=== PATIENT | female | born 1980 | race Hispanic/Latino ===

== ENCOUNTER → 2022-07-20 | Day surgery (SDC) | payer OTHER ==
[~2022-07-20] MED LIST: CENTRUM SILVER1 EAC5 PO; HYDROCODON-ACE1 EA11 PO; LIDOCAINE HCL 2% LOCAL INJ 5 ML SDV VIAL INJ ONE; NAPROXEN250 MG PO; NEURONTIN400 MG PO; PLAQUENIL200 MG PO; PREDNISONE5 MG PO; PROPOFOL IV EMULSION 10 MG/ML 20 ML VIAL ONE
[2022-07-20 14:05] VITALS: BP 127/88
== END | disposition home or self-care (01) ==
LOC: OR 10:11
PROVIDERS: ATTEND Internal Medicine Gastroenterology
DX: Z43.3 Encounter for attention to colostomy (principal); K59.00 Constipation, unspecified; K57.30 Diverticulosis of large intestine without perforation or abscess without bleeding; K64.8 Other hemorrhoids; Z71.3 Dietary counseling and surveillance; Z90.49 Acquired absence of other specified parts of digestive tract; Z87.19 Personal history of other diseases of the digestive system; M06.9 Rheumatoid arthritis, unspecified; E66.9 Obesity, unspecified; F41.9 Anxiety disorder, unspecified; Z68.29 Body mass index [BMI] 29.0-29.9, adult; Z86.16 Personal history of COVID-19; Z79.52 Long term (current) use of systemic steroids; Z79.899 Other long term (current) drug therapy
CPT/HCPCS: 36415; 44388; 84702; J2001; J2704; 45378

== ENCOUNTER 2022-11-21 14:12 | Inpatient (IN) | payer OTHER ==
[2022-11-21] VITALS (7 sets, daily range): BP systolic 106–127; BP diastolic 62–83
[~2022-11-21] VITALS: Ht 160 cm; Wt 65.8 kg
[~2022-11-21 14:12] MED LIST changes: -LIDOCAINE HCL 2% LOCAL INJ 5 ML SDV VIAL INJ ONE; -PROPOFOL IV EMULSION 10 MG/ML 20 ML VIAL ONE
[2022-11-21] MEDS ORDERED: SODIUM CHLORIDE 0.9% 1000ML 1,000 ML IV STA ×2 (16:19→18:23)
[2022-11-21 16:51] LABS: BASOPHILS % 0.4 % (0.0-1.0); EOSINOPHILS # (AUTO) 0.1 (0.0-0.4); HEMATOCRIT 53.3 % (34.2-44.1); HEMOGLOBIN 15.1 g/dL (12.0-16.0); LYMPHOCYTES % 10.5 % (18.0-39.1); MEAN CORPUSCULAR HEMOGLOBIN 22.5 pg (28-32); MEAN CORPUSCULAR HGB CONC 28.3 g/dL (31-35); MEAN CORPUSCULAR VOLUME 79.6 fL (81-99); MONOCYTES # (AUTO) 0.9 (0.2-0.8); MONOCYTES % 9.4 % (4.4-11.3); NEUTROPHILS # (AUTO) 7.1 (2.1-6.9); NEUTROPHILS % 77.8 % (38.7-80.0); PLATELET COUNT 324 x10e3/uL (140-360); RED CELL DISTRIBUTION WIDTH 19.9 % (11.7-14.4)
[2022-11-21 17:03] LABS: INR 1.08; PARTIAL THROMBOPLASTIN TIME 22.6 seconds (23.8-35.5); PROTHROMBIN TIME 14.2 seconds (11.9-14.5)
[2022-11-21] MEDS ORDERED: Vancomycin IV 1 GM in SODIUM CHLORIDE 0.9% 250ML 250 ML IV ONE (17:15)
[2022-11-21] MEDS ORDERED: CEFTRIAXONE 2 GM in SODIUM CHLORIDE 0.9% 100 ML IV ONE (17:15)
[2022-11-21] MEDS ORDERED: DEXAMETHASONE SOD PHOS 10 MG/1 ML VIAL IV ONE (17:15)
[2022-11-21 17:17] LABS: ALANINE AMINOTRANSFERASE 52 IU/L (0-55); ALBUMIN 3.4 g/dL (3.5-5.0); ALBUMIN/GLOBULIN RATIO 0.5 (0.8-2.0); ALKALINE PHOSPHATASE 344 IU/L (40-150); ANION GAP 25.3 mmol/L (8-16); BLOOD UREA NITROGEN 12 mg/dL (7-26); BUN/CREATININE RATIO 12 (6-25); CALCIUM 10.7 mg/dL (8.4-10.2); CARBON DIOXIDE 12 mmol/L (22-29); CHLORIDE 102 mmol/L (98-107); CREATINE KINASE 201 IU/L (29-168); CREATININE, SERUM 0.98 mg/dL (0.57-1.11); GLUCOSE 182 mg/dL (74-118); LIPASE 19 U/L (8-78); MAGNESIUM 1.8 MG/DL (1.3-2.1); POTASSIUM 4.3 mmol/L (3.5-5.1); SODIUM 135 mmol/L (136-145)
[2022-11-21] MEDS ORDERED: CEFTRIAXONE 1 GM VIAL ONE ×2 (17:26→17:27)
[2022-11-21] MEDS ORDERED: ONDANSETRON HCL INJ 2MG/ML 2ML 2 MG/ML VIAL ONE (17:26)
[2022-11-21] MEDS ORDERED: Vancomycin IV 1 GM VIAL ONE (17:27)
[2022-11-21 17:31] LABS: B-TYPE NATRIURETIC PEPTIDE2 15.5 pg/mL (0-100)
[2022-11-21 17:37] LABS: THYROID STIMULATING HORMONE 1.579 uIU/mL (0.350-4.940)
[2022-11-21] MEDS ORDERED: SODIUM CHLORIDE 0.9% 100 ML ONE (17:40)
[2022-11-21] MEDS ORDERED: Ampicillin INJ 2 GM in SODIUM CHLORIDE 0.9% 100 ML IV ONE ×2 (18:00→19:30)
[2022-11-21 18:23] LABS: STREPTOCOCCUS GRP A ANTIGEN NEGATIVE (NEGATIVE)
[2022-11-21 18:38] LABS: CLARITY,URINE HAZY (CLEAR); COLOR,URINE YELLOW (YELLOW); KETONES,URINE >=160 (NEGATIVE); LEUKOCYTE ESTERASE ,URINE NEGATIVE (NEGATIVE); NITRITE,URINE NEGATIVE (NEGATIVE); PROTEIN,URINE DIPSTICK >=300 (NEGATIVE); URINE UROBILINOGEN 0.2 mg/dL (0.2 - 1)
[2022-11-21 18:44] LABS: BACTERIA,URINE FEW /HPF; EPITHELIAL CELLS,URINE MANY /LPF; MUCUS,URINE FEW (RARE); RBC,URINE 0-5 /HPF (0-5); WBC,URINE (MAN) 0-5 /HPF (0-5)
[2022-11-21 19:05] LABS: ABG PCO2 28 mmHg (35-45); ABG PH 7.33 (7.35-7.45)
[2022-11-21 19:06] LABS: ABG HCO3 15 mmol/L (22-26); ABG PO2 95 mmHg (80-105); ABG TCO2 15
[2022-11-21] MEDS ORDERED: ACETAMINOPHEN 325 MG TAB PO ONE (19:15)
[2022-11-21] MEDS ORDERED: Ampicillin INJ 1 GM Vial ONE (19:25)
[2022-11-21] MEDS ORDERED: PROMETHAZINE 12.5MG/ NACL 0.9% 12.5 MG/50 ML BAG IV PRN (19:30)
[2022-11-21] MEDS ORDERED: METOPROLOL TARTRATE INJ 1 MG/ML VIAL IV PRN ×2 (19:30→22:00)
[2022-11-21] MEDS ORDERED: ONDANSETRON HCL INJ 2MG/ML 2ML 2 MG/ML VIAL IV PRN (19:30)
[2022-11-21] MEDS: SODIUM BICARBONATE 8.4% SYRING 50 ML in SODIUM CHLORIDE 0.45% 1,000 ML IV SCH (21:27)
[2022-11-21] MEDS ORDERED: ACETAMINOPHEN 325 MG SUPP PR PRN (22:00)
[2022-11-22] VITALS (26 sets, daily range): BP systolic 87–132; BP diastolic 55–84
[2022-11-22] MEDS: HYDROMORPHONE 1MG/1ML INJ IV PRN ×2 (00:51→07:46)
[2022-11-22] MEDS: SODIUM BICARBONATE 8.4% SYRING 50 ML in SODIUM CHLORIDE 0.45% 1,000 ML IV SCH ×3 (03:54→19:26)
[2022-11-22 06:27] LABS: BASOPHILS % 0.2 % (0.0-1.0); EOSINOPHILS % 0.2 % (0.0-6.0); HEMATOCRIT 36.9 % (34.2-44.1); LYMPHOCYTES # (AUTO) 0.5 (1.0-3.2); LYMPHOCYTES % 7.6 % (18.0-39.1); MEAN CORPUSCULAR HEMOGLOBIN 22.7 pg (28-32); MEAN CORPUSCULAR VOLUME 78.3 fL (81-99); MONOCYTES # (AUTO) 0.2 (0.2-0.8); MONOCYTES % 2.9 % (4.4-11.3); NEUTROPHILS # (AUTO) 5.7 (2.1-6.9); NEUTROPHILS % 88.6 % (38.7-80.0); PLATELET COUNT 325 x10e3/uL (140-360); RED BLOOD COUNT 4.71 x10e6/uL (3.6-5.1); RED CELL DISTRIBUTION WIDTH 18.2 % (11.7-14.4)
[2022-11-22 06:30] LABS: ALBUMIN 2.5 g/dL (3.5-5.0); ALBUMIN/GLOBULIN RATIO 0.6 (0.8-2.0); ANION GAP 15.8 mmol/L (8-16); CALCIUM 8.8 mg/dL (8.4-10.2); CREATININE, SERUM 0.58 mg/dL (0.57-1.11); POTASSIUM 3.8 mmol/L (3.5-5.1)
[2022-11-22 06:31] LABS: HEMOGLOBIN 10.7 g/dL (12.0-16.0)
[2022-11-22 06:36] LABS: MAGNESIUM 1.7 MG/DL (1.3-2.1); PHOSPHORUS 2.6 MG/DL (2.3-4.7)
[2022-11-22 06:57] LABS: THYROID STIMULATING HORMONE 0.27 uIU/mL (0.350-4.940)
[2022-11-22] MEDS ORDERED: MAGNESIUM SULF 1GRAM/DEXTROSE 100 ML IV ONE (07:30)
[2022-11-22 08:53] LABS: ANISOCYTOSIS MODERATE; PLATELET ESTIMATE ADEQUATE; PLATELET MORPHOLOGY COMMENT NORMAL; RBC MORPHOLOGY COMMENT ABNORMAL
[2022-11-22] MEDS ORDERED: DOXYCYCLINE HY100 MG PO (11:31)
[2022-11-23] VITALS (15 sets, daily range): BP systolic 108–133; BP diastolic 70–92
[2022-11-23 01:56] LABS: % IRON SATURATION 5 % (15-50); IRON 16 ug/dL (50-170); TOTAL IRON BINDING CAPACITY 297 ug/dL (261-478); TRANSFERRIN 212 mg/dL (180-382)
[2022-11-23] MEDS: SODIUM BICARBONATE 8.4% SYRING 50 ML in SODIUM CHLORIDE 0.45% 1,000 ML IV SCH (03:42)
[2022-11-23 06:43] LABS: BASOPHILS % 0.1 % (0.0-1.0); HEMATOCRIT 30.6 % (34.2-44.1); LYMPHOCYTES # (AUTO) 0.9 (1.0-3.2); LYMPHOCYTES % 10.3 % (18.0-39.1); MEAN CORPUSCULAR HEMOGLOBIN 22.4 pg (28-32); MEAN CORPUSCULAR HGB CONC 29.4 g/dL (31-35); MEAN CORPUSCULAR VOLUME 76.3 fL (81-99); MONOCYTES # (AUTO) 0.8 (0.2-0.8); NEUTROPHILS # (AUTO) 6.7 (2.1-6.9); NEUTROPHILS % 79.7 % (38.7-80.0); PLATELET COUNT 309 x10e3/uL (140-360); RED BLOOD COUNT 4.01 x10e6/uL (3.6-5.1); RED CELL DISTRIBUTION WIDTH 17.9 % (11.7-14.4)
[2022-11-23 07:07] LABS: ALBUMIN 2.3 g/dL (3.5-5.0); ALBUMIN/GLOBULIN RATIO 0.7 (0.8-2.0); ANION GAP 11.6 mmol/L (8-16); CALCIUM 7.7 mg/dL (8.4-10.2); CREATININE, SERUM 0.49 mg/dL (0.57-1.11)
[2022-11-23 07:09] LABS: POTASSIUM 2.6 mmol/L (3.5-5.1)
[2022-11-23] MEDS ORDERED: MAGNESIUM SULFATE 2GM/50ML 50 ML IV ONE (09:30)
[2022-11-23] MEDS: POTASSIUM CHLORIDE 20MEQ/100ML 100 ML IV SCH ×4 (10:19→16:55)
[2022-11-23] MEDS: SODIUM CHLORIDE 0.45% 1,000 ML IV SCH (11:46)
[2022-11-23] MEDS: HYDROMORPHONE 1MG/1ML INJ IV PRN (19:21)
[2022-11-24] VITALS (12 sets, daily range): BP systolic 103–124; BP diastolic 60–87
[2022-11-24] MEDS: SODIUM CHLORIDE 0.45% 1,000 ML IV SCH (06:02)
[2022-11-24 07:16] LABS: BASOPHILS % 0.4 % (0.0-1.0); EOSINOPHILS # (AUTO) 0.1 (0.0-0.4); HEMATOCRIT 30.2 % (34.2-44.1); HEMOGLOBIN 8.6 g/dL (12.0-16.0); LYMPHOCYTES # (AUTO) 1.6 (1.0-3.2); LYMPHOCYTES % 31.1 % (18.0-39.1); MEAN CORPUSCULAR HEMOGLOBIN 22.6 pg (28-32); MEAN CORPUSCULAR HGB CONC 28.5 g/dL (31-35); MEAN CORPUSCULAR VOLUME 79.5 fL (81-99); MONOCYTES # (AUTO) 0.5 (0.2-0.8); MONOCYTES % 9.5 % (4.4-11.3); NEUTROPHILS # (AUTO) 2.9 (2.1-6.9); NEUTROPHILS % 56.4 % (38.7-80.0); PLATELET COUNT 283 x10e3/uL (140-360); RED CELL DISTRIBUTION WIDTH 18.3 % (11.7-14.4)
[2022-11-24 07:38] LABS: ALBUMIN/GLOBULIN RATIO 0.6 (0.8-2.0); ANION GAP 26.6 mmol/L (8-16); CREATININE, SERUM 0.5 mg/dL (0.57-1.11); MAGNESIUM 1.4 MG/DL (1.3-2.1)
[2022-11-24 07:41] LABS: CALCIUM 6.2 mg/dL (8.4-10.2); POTASSIUM 2.6 mmol/L (3.5-5.1)
[2022-11-24] MEDS: POTASSIUM CHLORIDE 20MEQ/100ML 100 ML IV SCH ×2 (09:40→12:50)
[2022-11-24] MEDS ORDERED: DEXTROSE 5% 1,000 ML IV ONE (09:45)
[2022-11-24] MEDS: IRON SUCROSE 100 MG in SODIUM CHLORIDE 0.9% 100 ML IV SCH (10:03)
[2022-11-24] MEDS: HYDROMORPHONE 1MG/1ML INJ IV PRN (13:48)
[2022-11-24] MEDS ORDERED: POTASSIUM CHLORIDE 20 MEQ TAB CR PO ONE (14:00)
[2022-11-24] MEDS: HYDROXYCHLOROQUINE SULFATE 200 MG TAB PO SCH (16:34)
[2022-11-24] MEDS: GABAPENTIN 400 MG CAP PO SCH (20:05)
[2022-11-25] VITALS (15 sets, daily range): BP systolic 97–122; BP diastolic 60–85
[2022-11-25] MEDS: HYDROMORPHONE 1MG/1ML INJ IV PRN ×2 (01:30→14:48)
[2022-11-25 06:38] LABS: BASOPHILS % 0.5 % (0.0-1.0); EOSINOPHILS # (AUTO) 0.2 (0.0-0.4); EOSINOPHILS % 2.6 % (0.0-6.0); HEMATOCRIT 34.4 % (34.2-44.1); HEMOGLOBIN 9.6 g/dL (12.0-16.0); LYMPHOCYTES # (AUTO) 1.5 (1.0-3.2); LYMPHOCYTES % 25.9 % (18.0-39.1); MEAN CORPUSCULAR HEMOGLOBIN 22.2 pg (28-32); MEAN CORPUSCULAR HGB CONC 27.9 g/dL (31-35); MEAN CORPUSCULAR VOLUME 79.4 fL (81-99); MONOCYTES # (AUTO) 0.6 (0.2-0.8); MONOCYTES % 10.9 % (4.4-11.3); NEUTROPHILS # (AUTO) 3.4 (2.1-6.9); PLATELET COUNT 343 x10e3/uL (140-360); RED BLOOD COUNT 4.33 x10e6/uL (3.6-5.1)
[2022-11-25 07:00] LABS: ALBUMIN 2.4 g/dL (3.5-5.0); ALBUMIN/GLOBULIN RATIO 0.7 (0.8-2.0); ANION GAP 12.5 mmol/L (8-16); CALCIUM 8.2 mg/dL (8.4-10.2); CREATININE, SERUM 0.55 mg/dL (0.57-1.11); POTASSIUM 3.5 mmol/L (3.5-5.1)
[2022-11-25] MEDS: NAPROXEN 250 MG TAB PO PRN (07:41)
[2022-11-25] MEDS: IRON SUCROSE 100 MG in SODIUM CHLORIDE 0.9% 100 ML IV SCH (08:46)
[2022-11-25] MEDS: GABAPENTIN 400 MG CAP PO SCH ×3 (08:46→23:14)
[2022-11-25] MEDS: PREDNISONE 5 MG TAB PO SCH (08:46)
[2022-11-25] MEDS: HYDROXYCHLOROQUINE SULFATE 200 MG TAB PO SCH ×2 (08:46→17:04)
[2022-11-25] MEDS ORDERED: POTASSIUM CHLORIDE 20MEQ/100ML 200 ML IV ONE (14:15)
[2022-11-25] MEDS: METRONIDAZOLE 500 MG TAB PO SCH (23:14)
[2022-11-26] VITALS (8 sets, daily range): BP systolic 94–134; BP diastolic 57–92
[2022-11-26] MEDS: METRONIDAZOLE 500 MG TAB PO SCH ×2 (05:50→14:57)
[2022-11-26 07:15] LABS: BASOPHILS % 0.4 % (0.0-1.0); EOSINOPHILS # (AUTO) 0.2 (0.0-0.4); EOSINOPHILS % 2.5 % (0.0-6.0); HEMATOCRIT 36.9 % (34.2-44.1); HEMOGLOBIN 10.3 g/dL (12.0-16.0); LYMPHOCYTES # (AUTO) 1.9 (1.0-3.2); LYMPHOCYTES % 24.9 % (18.0-39.1); MEAN CORPUSCULAR HEMOGLOBIN 22.4 pg (28-32); MEAN CORPUSCULAR HGB CONC 27.9 g/dL (31-35); MEAN CORPUSCULAR VOLUME 80.2 fL (81-99); MONOCYTES # (AUTO) 0.6 (0.2-0.8); MONOCYTES % 7.7 % (4.4-11.3); NEUTROPHILS # (AUTO) 4.7 (2.1-6.9); NEUTROPHILS % 62.2 % (38.7-80.0); PLATELET COUNT 409 x10e3/uL (140-360); RED CELL DISTRIBUTION WIDTH 18.9 % (11.7-14.4)
[2022-11-26 07:59] LABS: ALBUMIN 2.7 g/dL (3.5-5.0); ALBUMIN/GLOBULIN RATIO 0.7 (0.8-2.0); ANION GAP 11.4 mmol/L (8-16); CALCIUM 8.6 mg/dL (8.4-10.2); CREATININE, SERUM 0.55 mg/dL (0.57-1.11); POTASSIUM 3.4 mmol/L (3.5-5.1)
[2022-11-26] MEDS: GABAPENTIN 400 MG CAP PO SCH ×3 (09:12→20:44)
[2022-11-26] MEDS: PREDNISONE 5 MG TAB PO SCH (09:12)
[2022-11-26] MEDS: HYDROXYCHLOROQUINE SULFATE 200 MG TAB PO SCH ×2 (09:13→17:11)
[2022-11-26] MEDS: IRON SUCROSE 100 MG in SODIUM CHLORIDE 0.9% 100 ML IV SCH (10:50)
[2022-11-26] MEDS ORDERED: SODIUM CHLORIDE 0.9% 250ML 250 ML ONE (11:00)
[2022-11-26] MEDS ORDERED: POTASSIUM CHLORIDE 20 MEQ TAB CR PO ONE (11:45)
[2022-11-26] MEDS ORDERED: POTASSIUM CHLORIDE 20 MEQ TAB CR PO STA (12:35)
[2022-11-27] VITALS: BP_SYST 122; BP_SYST 130; BP_DIAS 82; BP_DIAS 88
[2022-11-27] MEDS: METRONIDAZOLE 500 MG TAB PO SCH ×3 (01:00→14:27)
[2022-11-27] MEDS: NAPROXEN 250 MG TAB PO PRN (01:12)
[2022-11-27 04:58] VITALS: BP 109/77
[2022-11-27 06:14] LABS: BASOPHILS % 0.4 % (0.0-1.0); EOSINOPHILS # (AUTO) 0.2 (0.0-0.4); EOSINOPHILS % 1.9 % (0.0-6.0); HEMATOCRIT 35.6 % (34.2-44.1); HEMOGLOBIN 10.7 g/dL (12.0-16.0); LYMPHOCYTES # (AUTO) 1.8 (1.0-3.2); LYMPHOCYTES % 19.8 % (18.0-39.1); MEAN CORPUSCULAR HEMOGLOBIN 22.7 pg (28-32); MEAN CORPUSCULAR HGB CONC 30.1 g/dL (31-35); MEAN CORPUSCULAR VOLUME 75.6 fL (81-99); MONOCYTES # (AUTO) 0.8 (0.2-0.8); NEUTROPHILS # (AUTO) 6.1 (2.1-6.9); NEUTROPHILS % 66.6 % (38.7-80.0); PLATELET COUNT 493 x10e3/uL (140-360); RED BLOOD COUNT 4.71 x10e6/uL (3.6-5.1); RED CELL DISTRIBUTION WIDTH 19.4 % (11.7-14.4)
[2022-11-27 06:33] LABS: ANION GAP 13.6 mmol/L (8-16); CALCIUM 8.5 mg/dL (8.4-10.2); CREATININE, SERUM 0.57 mg/dL (0.57-1.11); POTASSIUM 3.6 mmol/L (3.5-5.1)
[2022-11-27 07:44] VITALS: BP 109/77
[2022-11-27 09:00] VITALS: BP 113/79
[2022-11-27] MEDS: IRON SUCROSE 100 MG in SODIUM CHLORIDE 0.9% 100 ML IV SCH (09:01)
[2022-11-27] MEDS: GABAPENTIN 400 MG CAP PO SCH ×2 (09:02→14:26)
[2022-11-27] MEDS: HYDROXYCHLOROQUINE SULFATE 200 MG TAB PO SCH ×2 (09:02→14:27)
[2022-11-27] MEDS: PREDNISONE 5 MG TAB PO SCH (09:03)
[2022-11-27 12:34] VITALS: BP 115/85
[2022-11-27] MEDS ORDERED: METRONIDAZOLE500 MG PO (13:57)
[2022-11-27] MEDS ORDERED: KEFLEX125 MG/5 M PO (13:57)
[2022-11-27] MEDS ORDERED: LACTOBACILLUS ACIDOPHILUS CAPSULE PO SCH (17:00)
== END 2022-11-27 16:08 | disposition home or self-care (01) | DRG 871 ==
LOC: ER 15:47 → ERHOLD 19:12 → ICU 20:55 → MED/SURG2 11-26 09:51
PROVIDERS: ADMIT Internal Medicine; ATTEND Internal Medicine
PROC: 3E04329 Introduction of Other Anti-infective into Central Vein, Percutaneous Approach (ICD-10-PCS; 2022-11-21)
PROC: 3E04329 Introduction of Other Anti-infective into Central Vein, Percutaneous Approach (ICD-10-PCS; 2022-11-21)
PROC: 3E04329 Introduction of Other Anti-infective into Central Vein, Percutaneous Approach (ICD-10-PCS; 2022-11-21)
PROC: 3E04329 Introduction of Other Anti-infective into Central Vein, Percutaneous Approach (ICD-10-PCS; 2022-11-21)
PROC: 06HY33Z Insertion of Infusion Device into Lower Vein, Percutaneous Approach (ICD-10-PCS; 2022-11-21)
PROC: 02HV33Z Insertion of Infusion Device into Superior Vena Cava, Percutaneous Approach (ICD-10-PCS; principal; 2022-11-22)
PROC: 3E04329 Introduction of Other Anti-infective into Central Vein, Percutaneous Approach (ICD-10-PCS; 2022-11-22)
PROC: 3E04329 Introduction of Other Anti-infective into Central Vein, Percutaneous Approach (ICD-10-PCS; 2022-11-23)
PROC: 3E04329 Introduction of Other Anti-infective into Central Vein, Percutaneous Approach (ICD-10-PCS; 2022-11-24)
PROC: 3E04329 Introduction of Other Anti-infective into Central Vein, Percutaneous Approach (ICD-10-PCS; 2022-11-25)
PROC: 3E04329 Introduction of Other Anti-infective into Central Vein, Percutaneous Approach (ICD-10-PCS; 2022-11-25)
PROC: 3E04329 Introduction of Other Anti-infective into Central Vein, Percutaneous Approach (ICD-10-PCS; 2022-11-26)
PROC: 3E04329 Introduction of Other Anti-infective into Central Vein, Percutaneous Approach (ICD-10-PCS; 2022-11-27)
DX: A41.9 Sepsis, unspecified organism (principal); G93.41 Metabolic encephalopathy; K57.32 Diverticulitis of large intestine without perforation or abscess without bleeding; K63.0 Abscess of intestine; E87.20 Acidosis, unspecified; D84.821 Immunodeficiency due to drugs; E87.0 Hyperosmolality and hypernatremia; M08.00 Unspecified juvenile rheumatoid arthritis of unspecified site; R65.20 Severe sepsis without septic shock; M79.89 Other specified soft tissue disorders; E83.42 Hypomagnesemia; E87.6 Hypokalemia; N83.202 Unspecified ovarian cyst, left side; E66.9 Obesity, unspecified; R74.01 Elevation of levels of liver transaminase levels; D50.9 Iron deficiency anemia, unspecified; M19.90 Unspecified osteoarthritis, unspecified site; Z87.19 Personal history of other diseases of the digestive system; Z86.16 Personal history of COVID-19; Z96.653 Presence of artificial knee joint, bilateral; Z90.49 Acquired absence of other specified parts of digestive tract; Z98.890 Other specified postprocedural states; Z79.891 Long term (current) use of opiate analgesic; Z79.52 Long term (current) use of systemic steroids; Z79.1 Long term (current) use of non-steroidal anti-inflammatories (NSAID); Z79.899 Other long term (current) drug therapy; Z68.25 Body mass index [BMI] 25.0-25.9, adult
CPT/HCPCS: 36415; 36569; 36600; 51700; 70450; 71045; 74177; 80048; 80053; 80061; 80329; 81001; 82140; 82550; 82553; 82607; 82746; 82805; 83036; 83518; 83540; 83605; 83690; 83735; 83880; 84100; 84443; 84466; 84484; 84702; 85025; 85045; 85610; 85730; 87040; 87070; 87086; 93005; 93306; 94799; 96360; 99252; 99284; J0696; J1100; J1170; J1756; J2405; J2543; J3370; J3475; J3480; J7030; J7050; J7070; J7512

== ENCOUNTER 2022-11-28 20:34 | Inpatient (IN) | payer OTHER ==
[~2022-11-28] VITALS: Ht 152.4 cm; Wt 78.5 kg
[~2022-11-28 20:34] MED LIST changes: +DOXYCYCLINE HY100 MG PO; +KEFLEX125 MG/5 M PO; +METRONIDAZOLE500 MG PO
[2022-11-28] MEDS ORDERED: ONDANSETRON HCL INJ 2MG/ML 2ML 2 MG/ML VIAL IV PRN (21:15)
[2022-11-28] MEDS ORDERED: SODIUM CHLORIDE 0.9% 1000ML 1,000 ML IV SCH (21:45)
[2022-11-28 21:55] LABS: BASOPHILS # (AUTO) 0.1 (0.0-0.1); BASOPHILS % 0.3 % (0.0-1.0); EOSINOPHILS # (AUTO) 0.1 (0.0-0.4); EOSINOPHILS % 0.4 % (0.0-6.0); HEMATOCRIT 46.3 % (34.2-44.1); HEMOGLOBIN 13.2 g/dL (12.0-16.0); LYMPHOCYTES # (AUTO) 0.4 (1.0-3.2); LYMPHOCYTES % 1.9 % (18.0-39.1); MEAN CORPUSCULAR HEMOGLOBIN 23.1 pg (28-32); MEAN CORPUSCULAR HGB CONC 28.5 g/dL (31-35); MEAN CORPUSCULAR VOLUME 80.9 fL (81-99); MONOCYTES # (AUTO) 0.5 (0.2-0.8); NEUTROPHILS # (AUTO) 21.6 (2.1-6.9); NEUTROPHILS % 93.7 % (38.7-80.0); PLATELET COUNT 504 x10e3/uL (140-360); RED BLOOD COUNT 5.72 x10e6/uL (3.6-5.1); RED CELL DISTRIBUTION WIDTH 21.5 % (11.7-14.4)
[2022-11-28 22:01] LABS: ALBUMIN 3.4 g/dL (3.5-5.0); ALBUMIN/GLOBULIN RATIO 0.7 (0.8-2.0); ANION GAP 17.6 mmol/L (8-16); CALCIUM 8.6 mg/dL (8.4-10.2); CREATININE, SERUM 0.71 mg/dL (0.57-1.11); POTASSIUM 3.6 mmol/L (3.5-5.1)
[2022-11-28] MEDS: SODIUM CHLORIDE 0.9% 1000ML 1,000 ML IV SCH ×2 (22:06→22:12)
[2022-11-28] MEDS: Morphine 4mg INJECTION 4 MG/ML INJ IV PRN (22:06)
[2022-11-28 22:17] LABS: LIPASE 228 U/L (8-78)
[2022-11-28] MEDS ORDERED: IOPAMIDOL 370 MG/ML 100 ML INFUS..BTL INJ ONE (22:23)
[2022-11-28] MEDS ORDERED: ACETAMINOPHEN 1000 MG/100 ML IV STA (22:53)
[2022-11-29] VITALS (19 sets, daily range): BP systolic 98–179; BP diastolic 59–154
[2022-11-29] MEDS ORDERED: METOCLOPRAMIDE HCL 10 MG/2ML VIAL IV ONE (00:15)
[2022-11-29] MEDS ORDERED: ONDANSETRON HCL INJ 2MG/ML 2ML 2 MG/ML VIAL IV PRN (00:45)
[2022-11-29] MEDS ORDERED: SODIUM CHLORIDE 0.9% 1000ML 1,000 ML IV SCH ×2 (00:45→03:45)
[2022-11-29] MEDS: Morphine 4mg INJECTION 4 MG/ML INJ IV PRN (02:47)
[2022-11-29 03:31] LABS: CLARITY,URINE CLEAR (CLEAR); COLOR,URINE YELLOW (YELLOW); KETONES,URINE NEGATIVE (NEGATIVE); LEUKOCYTE ESTERASE ,URINE NEGATIVE (NEGATIVE); NITRITE,URINE NEGATIVE (NEGATIVE); PROTEIN,URINE DIPSTICK TRACE (NEGATIVE); URINE UROBILINOGEN 0.2 mg/dL (0.2 - 1)
[2022-11-29 03:34] LABS: BACTERIA,URINE FEW /HPF; EPITHELIAL CELLS,URINE RARE /LPF; RBC,URINE 0-5 /HPF (0-5)
[2022-11-29] MEDS: ACETAMINOPHEN 1000 MG/100 ML IV PRN ×3 (03:42→22:42)
[2022-11-29] MEDS ORDERED: ACETAMINOPHEN 1000 MG/100 ML 100 ML IV ONE (03:53)
[2022-11-29] MEDS ORDERED: ZIPRASIDONE 20 MG VIAL IM PRN ×2 (05:15→14:00)
[2022-11-29] MEDS ORDERED: ACETAMINOPHEN 1000 MG/100 ML IV SCH (06:00)
[2022-11-29] MEDS ORDERED: Vancomycin IV 1 GM in SODIUM CHLORIDE 0.9% 250ML 250 ML IV ONE (08:30)
[2022-11-29] MEDS ORDERED: SODIUM CHLORIDE 0.9% 500ML 500 ML ONE (08:45)
[2022-11-29] MEDS: METRONIDAZOLE 500MG/NS 100ML 100 ML IV SCH ×2 (08:51→14:34)
[2022-11-29] MEDS: HYDROXYCHLOROQUINE SULFATE 200 MG TAB PO SCH ×2 (09:00→16:10)
[2022-11-29] MEDS ORDERED: LORAZEPAM INJ 2 MG/ML VIAL IV ONE ×2 (09:00→14:00)
[2022-11-29] MEDS ORDERED: PREDNISONE 10 MG TAB PO SCH (09:00)
[2022-11-29] MEDS: SODIUM BICARBONATE 8.4% 50 ML in SODIUM CHLORIDE 0.45% 1,000 ML IV SCH ×3 (09:07→22:42)
[2022-11-29] MEDS ORDERED: HYDROCORTISONE SOD SUCCINATE 100 MG VIAL IV ONE (09:15)
[2022-11-29 09:27] LABS: BASOPHILS % 0.2 % (0.0-1.0); EOSINOPHILS # (AUTO) 0.1 (0.0-0.4); EOSINOPHILS % 0.3 % (0.0-6.0); HEMATOCRIT 40.8 % (34.2-44.1); HEMOGLOBIN 11.1 g/dL (12.0-16.0); LYMPHOCYTES # (AUTO) 0.5 (1.0-3.2); LYMPHOCYTES % 2.5 % (18.0-39.1); MEAN CORPUSCULAR HEMOGLOBIN 22.9 pg (28-32); MEAN CORPUSCULAR HGB CONC 27.2 g/dL (31-35); MEAN CORPUSCULAR VOLUME 84.1 fL (81-99); MONOCYTES # (AUTO) 0.5 (0.2-0.8); MONOCYTES % 2.5 % (4.4-11.3); NEUTROPHILS % 93.3 % (38.7-80.0); PLATELET COUNT 425 x10e3/uL (140-360); RED BLOOD COUNT 4.85 x10e6/uL (3.6-5.1); RED CELL DISTRIBUTION WIDTH 21.1 % (11.7-14.4)
[2022-11-29 09:36] LABS: MAGNESIUM 1.2 MG/DL (1.3-2.1); PHOSPHORUS 3.2 MG/DL (2.3-4.7)
[2022-11-29 09:50] LABS: ALBUMIN 2.8 g/dL (3.5-5.0); ALBUMIN/GLOBULIN RATIO 0.8 (0.8-2.0); ANION GAP 15.3 mmol/L (8-16); CREATININE, SERUM 0.63 mg/dL (0.57-1.11); POTASSIUM 3.3 mmol/L (3.5-5.1)
[2022-11-29] MEDS: ACYCLOVIR SODIUM 1,000 MG in SODIUM CHLORIDE 0.9% 250ML 250 ML IV SCH ×2 (10:22→16:12)
[2022-11-29 10:52] LABS: ABG PCO2 34 mmHg (35-45); ABG PH 7.35 (7.35-7.45); ABG PO2 110 mmHg (80-105)
[2022-11-29 10:53] LABS: ABG HCO3 19 mmol/L (22-26); ABG TCO2 19
[2022-11-29 10:59] LABS: BAND NEUTROPHILS % (MANUAL) 10 %; EOSINOPHILS % (MANUAL) 1 % (0-7); LYMPHOCYTES % (MANUAL) 4 % (19-48); MONOCYTES % (MANUAL) 1 % (3.4-9.0); NEUTROPHILS % (MANUAL) 84 % (40-74)
[2022-11-29 11:00] LABS: PLATELET ESTIMATE ADEQUATE; PLATELET MORPHOLOGY COMMENT NORMAL
[2022-11-29 11:29] LABS: INR 1.34; PROTHROMBIN TIME 16.8 seconds (11.9-14.5)
[2022-11-29 11:30] LABS: PARTIAL THROMBOPLASTIN TIME 34.1 seconds (23.8-35.5)
[2022-11-29] MEDS ORDERED: LORAZEPAM INJ 2 MG/ML VIAL IV PRN (12:00)
[2022-11-29] MEDS ORDERED: AMPICILLIN IV SCH (12:00)
[2022-11-29] MEDS ORDERED: SODIUM CHLORIDE 0.9% IV SCH (12:00)
[2022-11-29] MEDS ORDERED: SULBACTAM IV SCH (12:00)
[2022-11-29] MEDS: POTASSIUM CHLORIDE 20MEQ/100ML 100 ML IV SCH ×2 (12:20→14:35)
[2022-11-29] MEDS ORDERED: LIDOCAINE 1% 10 ML MULTIDOSE VIAL IJ ONE (12:29)
[2022-11-29] MEDS ORDERED: ETOMIDATE 2 MG/ML 10 ML INJ IV ONE (12:38)
[2022-11-29] MEDS ORDERED: MAGNESIUM SULFATE 2GM/50ML 50 ML IV ONE ×2 (13:00→15:00)
[2022-11-29 15:50] LABS: APPEARANCE,CSF CLEAR (CLEAR); COLOR,CSF COLORLESS (COLORLESS); TUBE NUMBER 4
[2022-11-29 15:51] LABS: WHITE BLOOD CELL,CSF 65 cells/uL (0-5)
[2022-11-29 16:56] LABS: ALBUMIN 2.7 g/dL (3.5-5.0); ALBUMIN/GLOBULIN RATIO 0.7 (0.8-2.0); CALCIUM 8.2 mg/dL (8.4-10.2); CREATININE, SERUM 0.62 mg/dL (0.57-1.11)
[2022-11-29] MEDS ORDERED: LEVETIRACETAM 500MG/5ML VIAL 1,500 MG in SODIUM CHLORIDE 0.9% 100 ML IV ONE (17:15)
[2022-11-29] MEDS ORDERED: ACETAMINOPHEN 1000 MG/100 ML IV ONE (17:35)
[2022-11-29 20:10] LABS: LYMPHOCYTES,CSF 12 % (40-80); MONOCYTES,CSF 12 %; NEUTROPHILS,CSF 76 % (0-6)
[2022-11-30] VITALS (22 sets, daily range): BP systolic 110–156; BP diastolic 73–131
[2022-11-30] MEDS: ACYCLOVIR SODIUM 1,000 MG in SODIUM CHLORIDE 0.9% 250ML 250 ML IV SCH ×3 (00:50→16:32)
[2022-11-30] MEDS: METOPROLOL TARTRATE INJ 1 MG/ML VIAL IV PRN (02:06)
[2022-11-30] MEDS: LORAZEPAM INJ 2 MG/ML VIAL IV PRN ×5 (02:26→21:55)
[2022-11-30] MEDS: ACETAMINOPHEN 1000 MG/100 ML IV PRN (04:51)
[2022-11-30] MEDS: SODIUM BICARBONATE 8.4% 50 ML in SODIUM CHLORIDE 0.45% 1,000 ML IV SCH (04:52)
[2022-11-30 07:16] LABS: BASOPHILS % 0.3 % (0.0-1.0); EOSINOPHILS # (AUTO) 0.1 (0.0-0.4); EOSINOPHILS % 0.9 % (0.0-6.0); LYMPHOCYTES # (AUTO) 0.7 (1.0-3.2); LYMPHOCYTES % 6.6 % (18.0-39.1); MEAN CORPUSCULAR HGB CONC 28.6 g/dL (31-35); MONOCYTES # (AUTO) 0.7 (0.2-0.8); MONOCYTES % 6.4 % (4.4-11.3); NEUTROPHILS # (AUTO) 9.4 (2.1-6.9); NEUTROPHILS % 85.3 % (38.7-80.0); PLATELET COUNT 301 x10e3/uL (140-360); RED BLOOD COUNT 3.48 x10e6/uL (3.6-5.1); RED CELL DISTRIBUTION WIDTH 20.3 % (11.7-14.4)
[2022-11-30 07:35] LABS: ALANINE AMINOTRANSFERASE 23 IU/L (0-55); ALBUMIN 1.7 g/dL (3.5-5.0); ALBUMIN/GLOBULIN RATIO 0.7 (0.8-2.0); ALKALINE PHOSPHATASE 70 IU/L (40-150); ANION GAP 9.3 mmol/L (8-16); BLOOD UREA NITROGEN < 5 mg/dL (7-26); CARBON DIOXIDE 25 mmol/L (22-29); CHLORIDE 102 mmol/L (98-107); CREATININE, SERUM 0.41 mg/dL (0.57-1.11); LIPASE 78 U/L (8-78); SODIUM 134 mmol/L (136-145)
[2022-11-30 07:39] LABS: MEAN CORPUSCULAR VOLUME 80.5 fL (81-99)
[2022-11-30 07:40] LABS: BUN/CREATININE RATIO 12 (6-25)
[2022-11-30 07:41] LABS: CALCIUM 5.9 mg/dL (8.4-10.2); GLUCOSE 55 mg/dL (74-118); POTASSIUM 2.3 mmol/L (3.5-5.1)
[2022-11-30] MEDS ORDERED: ACETAMINOPHEN 650 MG SUPP PR PRN (08:15)
[2022-11-30] MEDS: LEVETIRACETAM 500MG/5ML VIAL 1,000 MG in SODIUM CHLORIDE 0.9% 100 ML IV SCH ×2 (08:36→20:25)
[2022-11-30] MEDS: POTASSIUM CHLORIDE 20MEQ/100ML 100 ML IV SCH ×4 (08:36→16:26)
[2022-11-30] MEDS: LACTATED RINGER'S 1,000 ML INJ SCH ×2 (08:40→15:44)
[2022-11-30] MEDS ORDERED: KETOROLAC TROMETHAMINE 30 MG/ML VIAL IV ONE (09:00)
[2022-11-30] MEDS ORDERED: CALCIUM GLUCONATE 10% INJ 9.3 MEQ in SODIUM CHLORIDE 0.9% 100 ML IV ONE (10:00)
[2022-11-30] MEDS ORDERED: MAGNESIUM SULFATE 2GM/50ML 50 ML IV ONE ×2 (12:00→14:00)
[2022-11-30] MEDS ORDERED: SODIUM BICARBONATE 8.4% 50 ML VIAL IV ONE (12:23)
[2022-11-30] MEDS: FLUCONAZOLE 400MG/200ML BAG 200 ML IV SCH (15:14)
[2022-12-01] VITALS (23 sets, daily range): BP systolic 107–171; BP diastolic 64–115
[2022-12-01] MEDS: ACYCLOVIR SODIUM 1,000 MG in SODIUM CHLORIDE 0.9% 250ML 250 ML IV SCH ×3 (00:24→16:05)
[2022-12-01] MEDS: LORAZEPAM INJ 2 MG/ML VIAL IV PRN (02:14)
[2022-12-01] MEDS: METOPROLOL TARTRATE INJ 1 MG/ML VIAL IV PRN (03:05)
[2022-12-01] MEDS: LACTATED RINGER'S 1,000 ML INJ SCH (03:19)
[2022-12-01 06:30] LABS: BASOPHILS % 0.3 % (0.0-1.0); EOSINOPHILS # (AUTO) 0.2 (0.0-0.4); EOSINOPHILS % 3.1 % (0.0-6.0); HEMATOCRIT 33.6 % (34.2-44.1); HEMOGLOBIN 9.4 g/dL (12.0-16.0); LYMPHOCYTES # (AUTO) 0.7 (1.0-3.2); LYMPHOCYTES % 9.9 % (18.0-39.1); MEAN CORPUSCULAR VOLUME 82.4 fL (81-99); MONOCYTES # (AUTO) 0.4 (0.2-0.8); MONOCYTES % 5.2 % (4.4-11.3); PLATELET COUNT 379 x10e3/uL (140-360); RED BLOOD COUNT 4.08 x10e6/uL (3.6-5.1); RED CELL DISTRIBUTION WIDTH 20.6 % (11.7-14.4)
[2022-12-01 06:50] LABS: ALANINE AMINOTRANSFERASE 21 IU/L (0-55); ALBUMIN 1.9 g/dL (3.5-5.0); ALBUMIN/GLOBULIN RATIO 0.6 (0.8-2.0); ALKALINE PHOSPHATASE 93 IU/L (40-150); ANION GAP 14.3 mmol/L (8-16); BLOOD UREA NITROGEN < 5 mg/dL (7-26); CARBON DIOXIDE 20 mmol/L (22-29); CHLORIDE 107 mmol/L (98-107); CREATININE, SERUM 0.45 mg/dL (0.57-1.11); GLUCOSE 85 mg/dL (74-118); POTASSIUM 3.3 mmol/L (3.5-5.1); SODIUM 138 mmol/L (136-145)
[2022-12-01 06:58] LABS: BUN/CREATININE RATIO 11 (6-25)
[2022-12-01 07:17] LABS: ANISOCYTOSIS MODERATE; HYPOCHROMASIA MODERATE; PLATELET ESTIMATE ADEQUATE; PLATELET MORPHOLOGY COMMENT NORMAL; RBC MORPHOLOGY COMMENT ABNORMAL
[2022-12-01] MEDS: LEVETIRACETAM 500MG/5ML VIAL 1,000 MG in SODIUM CHLORIDE 0.9% 100 ML IV SCH ×2 (08:11→20:06)
[2022-12-01] MEDS: POTASSIUM CHLORIDE 20MEQ/100ML 100 ML IV SCH ×2 (08:55→10:55)
[2022-12-01] MEDS ORDERED: MAGNESIUM SULFATE 2GM/50ML 50 ML IV ONE ×2 (09:00→13:00)
[2022-12-01] MEDS ORDERED: IOPAMIDOL 370 MG/ML 100 ML INFUS..BTL INJ ONE (13:56)
[2022-12-01] MEDS ORDERED: SODIUM CHLORIDE 0.9% 100 ML ONE (13:56)
[2022-12-01] MEDS ORDERED: POTASSIUM PHOSPHATE 15 MM in SODIUM CHLORIDE 0.9% 250ML 250 ML IV ONE (14:00)
[2022-12-01] MEDS: FLUCONAZOLE 400MG/200ML BAG 200 ML IV SCH (15:03)
[2022-12-01] MEDS: ACETAMINOPHEN 325 MG/10 ML UDC NG PRN (17:55)
[2022-12-01] MEDS ORDERED: METOPROLOL TARTRATE INJ 1 MG/ML VIAL IV PRN (18:30)
[2022-12-01] MEDS: ATORVASTATIN 40 MG TAB PO SCH (21:11)
[2022-12-01] MEDS: HYDROCORTISONE SOD SUCCINATE 100 MG VIAL IV SCH (22:36)
[2022-12-02] VITALS (25 sets, daily range): BP systolic 101–137; BP diastolic 67–97
[2022-12-02] MEDS: ACYCLOVIR SODIUM 1,000 MG in SODIUM CHLORIDE 0.9% 250ML 250 ML IV SCH ×3 (01:07→18:00)
[2022-12-02] MEDS: HYDROCORTISONE SOD SUCCINATE 100 MG VIAL IV SCH ×3 (06:08→22:13)
[2022-12-02 08:30] LABS: BASOPHILS % 0.2 % (0.0-1.0); EOSINOPHILS % 0.2 % (0.0-6.0); HEMATOCRIT 35.2 % (34.2-44.1); LYMPHOCYTES # (AUTO) 0.3 (1.0-3.2); LYMPHOCYTES % 4.5 % (18.0-39.1); MEAN CORPUSCULAR HEMOGLOBIN 22.9 pg (28-32); MEAN CORPUSCULAR HGB CONC 28.4 g/dL (31-35); MEAN CORPUSCULAR VOLUME 80.7 fL (81-99); MONOCYTES # (AUTO) 0.2 (0.2-0.8); MONOCYTES % 2.6 % (4.4-11.3); NEUTROPHILS # (AUTO) 6.1 (2.1-6.9); NEUTROPHILS % 91.9 % (38.7-80.0); PLATELET COUNT 488 x10e3/uL (140-360); RED BLOOD COUNT 4.36 x10e6/uL (3.6-5.1)
[2022-12-02] MEDS: LEVETIRACETAM 500MG/5ML VIAL 1,000 MG in SODIUM CHLORIDE 0.9% 100 ML IV SCH ×2 (08:44→20:48)
[2022-12-02 08:54] LABS: ALANINE AMINOTRANSFERASE 24 IU/L (0-55); ALBUMIN 2.4 g/dL (3.5-5.0); ALBUMIN/GLOBULIN RATIO 0.6 (0.8-2.0); ALKALINE PHOSPHATASE 113 IU/L (40-150); ANION GAP 12.6 mmol/L (8-16); BLOOD UREA NITROGEN < 5 mg/dL (7-26); CALCIUM 8.2 mg/dL (8.4-10.2); CARBON DIOXIDE 23 mmol/L (22-29); CHLORIDE 107 mmol/L (98-107); CREATININE, SERUM 0.54 mg/dL (0.57-1.11); GLUCOSE 170 mg/dL (74-118); POTASSIUM 3.6 mmol/L (3.5-5.1); SODIUM 139 mmol/L (136-145)
[2022-12-02] MEDS ORDERED: ASPIRIN 81 MG ENTERIC COATED PO SCH (09:00)
[2022-12-02 09:25] LABS: BUN/CREATININE RATIO 9 (6-25)
[2022-12-02] MEDS: CLOPIDOGREL BISULFATE 75 MG TAB PO SCH (09:37)
[2022-12-02] MEDS: POTASSIUM CHLORIDE 20MEQ/100ML 100 ML IV SCH ×2 (10:53→12:32)
[2022-12-02] MEDS: ACETAMINOPHEN 325 MG/10 ML UDC NG PRN ×2 (11:40→22:05)
[2022-12-02] MEDS: ASPIRIN 81 MG CHEW TAB PO SCH (11:41)
[2022-12-02] MEDS ORDERED: SODIUM PHOSPHATE IV ONE (12:00)
[2022-12-02] MEDS ORDERED: SODIUM CHLORIDE 0.9% IV ONE (12:00)
[2022-12-02] MEDS: FLUCONAZOLE 400MG/200ML BAG 200 ML IV SCH (15:55)
[2022-12-02] MEDS: HYDROCODONE/APAP 5MG-325MG TAB PO PRN (19:50)
[2022-12-02] MEDS: ATORVASTATIN 40 MG TAB PO SCH (21:03)
[2022-12-03] VITALS (20 sets, daily range): BP systolic 98–153; BP diastolic 67–96
[2022-12-03] MEDS: ACYCLOVIR SODIUM 1,000 MG in SODIUM CHLORIDE 0.9% 250ML 250 ML IV SCH ×3 (00:59→17:45)
[2022-12-03] MEDS: HYDROCODONE/APAP 5MG-325MG TAB PO PRN (02:19)
[2022-12-03] MEDS: HYDROCORTISONE SOD SUCCINATE 100 MG VIAL IV SCH ×3 (06:01→22:04)
[2022-12-03 06:06] LABS: BASOPHILS % 0.4 % (0.0-1.0); HEMATOCRIT 30.1 % (34.2-44.1); HEMOGLOBIN 8.5 g/dL (12.0-16.0); LYMPHOCYTES # (AUTO) 0.7 (1.0-3.2); LYMPHOCYTES % 14.5 % (18.0-39.1); MEAN CORPUSCULAR HEMOGLOBIN 22.8 pg (28-32); MEAN CORPUSCULAR HGB CONC 28.2 g/dL (31-35); MEAN CORPUSCULAR VOLUME 80.7 fL (81-99); MONOCYTES # (AUTO) 0.5 (0.2-0.8); MONOCYTES % 9.7 % (4.4-11.3); NEUTROPHILS # (AUTO) 3.6 (2.1-6.9); PLATELET COUNT 464 x10e3/uL (140-360); RED BLOOD COUNT 3.73 x10e6/uL (3.6-5.1); RED CELL DISTRIBUTION WIDTH 19.8 % (11.7-14.4)
[2022-12-03 06:38] LABS: ALBUMIN 2.2 g/dL (3.5-5.0); ALBUMIN/GLOBULIN RATIO 0.7 (0.8-2.0); ANION GAP 12.7 mmol/L (8-16); CALCIUM 7.5 mg/dL (8.4-10.2); CREATININE, SERUM 0.48 mg/dL (0.57-1.11)
[2022-12-03 07:23] LABS: POTASSIUM 2.7 mmol/L (3.5-5.1)
[2022-12-03] MEDS: LEVETIRACETAM 500MG/5ML VIAL 1,000 MG in SODIUM CHLORIDE 0.9% 100 ML IV SCH ×2 (08:12→20:07)
[2022-12-03] MEDS: POTASSIUM CHLORIDE 20MEQ/100ML 100 ML IV SCH ×5 (08:13→14:47)
[2022-12-03] MEDS: ASPIRIN 81 MG CHEW TAB PO SCH (08:36)
[2022-12-03] MEDS: CLOPIDOGREL BISULFATE 75 MG TAB PO SCH (08:36)
[2022-12-03] MEDS: FLUCONAZOLE 400MG/200ML BAG 200 ML IV SCH (14:46)
[2022-12-03] MEDS: ENOXAPARIN SOD INJ 40 MG/0.4 ML SYR SC SCH (17:47)
[2022-12-03] MEDS: ATORVASTATIN 40 MG TAB PO SCH (21:14)
[2022-12-03 22:37] LABS: CLARITY,URINE TURBID (CLEAR); COLOR,URINE YELLOW (YELLOW); LEUKOCYTE ESTERASE ,URINE NEGATIVE (NEGATIVE); NITRITE,URINE NEGATIVE (NEGATIVE)
[2022-12-03 22:38] LABS: KETONES,URINE >=160 (NEGATIVE); PROTEIN,URINE DIPSTICK 1+ (NEGATIVE); URINE UROBILINOGEN 0.2 mg/dL (0.2 - 1)
[2022-12-03 22:53] LABS: BACTERIA,URINE MANY /HPF; EPITHELIAL CELLS,URINE FEW /LPF; RBC,URINE >50 /HPF (0-5); WBC,URINE (MAN) 0-5 /HPF (0-5)
[2022-12-04] VITALS (11 sets, daily range): BP systolic 106–145; BP diastolic 70–130
[2022-12-04] MEDS: ACYCLOVIR SODIUM 1,000 MG in SODIUM CHLORIDE 0.9% 250ML 250 ML IV SCH ×3 (00:01→17:38)
[2022-12-04] MEDS: HYDROCODONE/APAP 5MG-325MG TAB PO PRN ×2 (00:26→15:08)
[2022-12-04] MEDS: HYDROCORTISONE SOD SUCCINATE 100 MG VIAL IV SCH ×3 (05:25→21:23)
[2022-12-04 06:42] LABS: BASOPHILS # (AUTO) 0.1 (0.0-0.1); BASOPHILS % 0.8 % (0.0-1.0); EOSINOPHILS % 0.7 % (0.0-6.0); HEMATOCRIT 29.1 % (34.2-44.1); HEMOGLOBIN 8.8 g/dL (12.0-16.0); LYMPHOCYTES # (AUTO) 1.4 (1.0-3.2); LYMPHOCYTES % 22.9 % (18.0-39.1); MEAN CORPUSCULAR HEMOGLOBIN 23.1 pg (28-32); MEAN CORPUSCULAR HGB CONC 30.2 g/dL (31-35); MEAN CORPUSCULAR VOLUME 76.4 fL (81-99); MONOCYTES # (AUTO) 0.7 (0.2-0.8); MONOCYTES % 11.1 % (4.4-11.3); NEUTROPHILS # (AUTO) 3.9 (2.1-6.9); NEUTROPHILS % 63.4 % (38.7-80.0); PLATELET COUNT 500 x10e3/uL (140-360); RED BLOOD COUNT 3.81 x10e6/uL (3.6-5.1); RED CELL DISTRIBUTION WIDTH 20.1 % (11.7-14.4)
[2022-12-04 07:03] LABS: ALBUMIN 2.6 g/dL (3.5-5.0); ALBUMIN/GLOBULIN RATIO 0.8 (0.8-2.0); ANION GAP 12.1 mmol/L (8-16); CALCIUM 8.4 mg/dL (8.4-10.2); CREATININE, SERUM 0.51 mg/dL (0.57-1.11); MAGNESIUM 1.8 MG/DL (1.3-2.1); POTASSIUM 3.1 mmol/L (3.5-5.1)
[2022-12-04] MEDS: LEVETIRACETAM 500MG/5ML VIAL 1,000 MG in SODIUM CHLORIDE 0.9% 100 ML IV SCH ×2 (07:43→20:07)
[2022-12-04] MEDS: ASPIRIN 81 MG CHEW TAB PO SCH (09:36)
[2022-12-04] MEDS: CLOPIDOGREL BISULFATE 75 MG TAB PO SCH (09:36)
[2022-12-04] MEDS ORDERED: SODIUM CHLORIDE 0.9% 250ML 250 ML ONE (10:01)
[2022-12-04] MEDS ORDERED: POTASSIUM CHLORIDE 20MEQ/100ML 200 ML IV ONE ×2 (12:15→18:00)
[2022-12-04] MEDS: ACETAMINOPHEN 325 MG/10 ML UDC NG PRN (13:05)
[2022-12-04] MEDS: FLUCONAZOLE 400MG/200ML BAG 200 ML IV SCH (15:57)
[2022-12-04] MEDS: ENOXAPARIN SOD INJ 40 MG/0.4 ML SYR SC SCH (18:50)
[2022-12-04] MEDS: ATORVASTATIN 40 MG TAB PO SCH (21:23)
[2022-12-05] VITALS (14 sets, daily range): BP systolic 119–148; BP diastolic 58–95
[2022-12-05] MEDS: ACYCLOVIR SODIUM 1,000 MG in SODIUM CHLORIDE 0.9% 250ML 250 ML IV SCH ×4 (01:41→23:15)
[2022-12-05] MEDS: HYDROCORTISONE SOD SUCCINATE 100 MG VIAL IV SCH ×3 (05:23→21:06)
[2022-12-05 06:29] LABS: BASOPHILS % 0.5 % (0.0-1.0); EOSINOPHILS % 0.3 % (0.0-6.0); HEMOGLOBIN 8.6 g/dL (12.0-16.0); LYMPHOCYTES # (AUTO) 1.3 (1.0-3.2); LYMPHOCYTES % 21.8 % (18.0-39.1); MEAN CORPUSCULAR HEMOGLOBIN 22.8 pg (28-32); MEAN CORPUSCULAR HGB CONC 27.7 g/dL (31-35); MEAN CORPUSCULAR VOLUME 82.2 fL (81-99); MONOCYTES # (AUTO) 0.5 (0.2-0.8); NEUTROPHILS # (AUTO) 3.9 (2.1-6.9); NEUTROPHILS % 68.2 % (38.7-80.0); PLATELET COUNT 524 x10e3/uL (140-360); RED BLOOD COUNT 3.77 x10e6/uL (3.6-5.1); RED CELL DISTRIBUTION WIDTH 20.2 % (11.7-14.4)
[2022-12-05 06:56] LABS: ALANINE AMINOTRANSFERASE 39 IU/L (0-55); ALBUMIN 2.4 g/dL (3.5-5.0); ALBUMIN/GLOBULIN RATIO 0.7 (0.8-2.0); ALKALINE PHOSPHATASE 83 IU/L (40-150); ANION GAP 13.7 mmol/L (8-16); BLOOD UREA NITROGEN < 5 mg/dL (7-26); CALCIUM 7.5 mg/dL (8.4-10.2); CARBON DIOXIDE 23 mmol/L (22-29); CHLORIDE 112 mmol/L (98-107); CREATININE, SERUM 0.47 mg/dL (0.57-1.11); GLUCOSE 105 mg/dL (74-118); SODIUM 146 mmol/L (136-145)
[2022-12-05 07:12] LABS: BUN/CREATININE RATIO 11 (6-25); POTASSIUM 2.7 mmol/L (3.5-5.1)
[2022-12-05] MEDS: ASPIRIN 81 MG CHEW TAB PO SCH (08:05)
[2022-12-05] MEDS: CLOPIDOGREL BISULFATE 75 MG TAB PO SCH (08:05)
[2022-12-05] MEDS: LEVETIRACETAM 500MG/5ML VIAL 1,000 MG in SODIUM CHLORIDE 0.9% 100 ML IV SCH ×2 (08:06→19:15)
[2022-12-05 08:28] LABS: LYMPHOCYTES % (MANUAL) 13 % (19-48); MONOCYTES % (MANUAL) 7 % (3.4-9.0); NEUTROPHILS % (MANUAL) 80 % (40-74); PLATELET ESTIMATE SLIGHTLY INCREASED; PLATELET MORPHOLOGY COMMENT NORMAL; RBC MORPHOLOGY COMMENT NORMAL
[2022-12-05 08:29] LABS: MICROCYTOSIS SLIGHT
[2022-12-05] MEDS: POTASSIUM CHLORIDE 20MEQ/100ML 100 ML IV SCH ×3 (08:44→15:03)
[2022-12-05] MEDS ORDERED: KCL 20 MEQ PACKET/ ORAL SOLN PO ONE (09:00)
[2022-12-05] MEDS: ONDANSETRON HCL INJ 2MG/ML 2ML 2 MG/ML VIAL IV PRN ×2 (15:02→21:17)
[2022-12-05] MEDS: FLUCONAZOLE 400MG/200ML BAG 200 ML IV SCH (15:03)
[2022-12-05] MEDS: ENOXAPARIN SOD INJ 40 MG/0.4 ML SYR SC SCH (17:08)
[2022-12-05] MEDS: ACETAMINOPHEN 325 MG/10 ML UDC NG PRN (17:10)
[2022-12-05] MEDS: ATORVASTATIN 40 MG TAB PO SCH (21:06)
[2022-12-06] VITALS (12 sets, daily range): BP systolic 120–146; BP diastolic 73–91
[2022-12-06] MEDS: ONDANSETRON HCL INJ 2MG/ML 2ML 2 MG/ML VIAL IV PRN ×3 (02:17→17:21)
[2022-12-06] MEDS: HYDROCORTISONE SOD SUCCINATE 100 MG VIAL IV SCH ×3 (04:47→23:18)
[2022-12-06 06:41] LABS: BASOPHILS % 0.6 % (0.0-1.0); EOSINOPHILS # (AUTO) 0.1 (0.0-0.4); EOSINOPHILS % 0.8 % (0.0-6.0); HEMATOCRIT 33.3 % (34.2-44.1); HEMOGLOBIN 9.9 g/dL (12.0-16.0); LYMPHOCYTES # (AUTO) 0.9 (1.0-3.2); LYMPHOCYTES % 13.6 % (18.0-39.1); MEAN CORPUSCULAR HEMOGLOBIN 23.2 pg (28-32); MEAN CORPUSCULAR HGB CONC 29.7 g/dL (31-35); MEAN CORPUSCULAR VOLUME 78.2 fL (81-99); MONOCYTES # (AUTO) 0.4 (0.2-0.8); MONOCYTES % 5.7 % (4.4-11.3); NEUTROPHILS # (AUTO) 4.9 (2.1-6.9); NEUTROPHILS % 78.2 % (38.7-80.0); PLATELET COUNT 594 x10e3/uL (140-360); RED BLOOD COUNT 4.26 x10e6/uL (3.6-5.1); RED CELL DISTRIBUTION WIDTH 21.2 % (11.7-14.4)
[2022-12-06 06:58] LABS: ALANINE AMINOTRANSFERASE 64 IU/L (0-55); ALBUMIN 2.9 g/dL (3.5-5.0); ALBUMIN/GLOBULIN RATIO 0.9 (0.8-2.0); ALKALINE PHOSPHATASE 99 IU/L (40-150); ANION GAP 11.8 mmol/L (8-16); BLOOD UREA NITROGEN < 5 mg/dL (7-26); CALCIUM 8.2 mg/dL (8.4-10.2); CARBON DIOXIDE 25 mmol/L (22-29); CHLORIDE 108 mmol/L (98-107); CREATININE, SERUM 0.55 mg/dL (0.57-1.11); GLUCOSE 94 mg/dL (74-118); SODIUM 142 mmol/L (136-145)
[2022-12-06 07:01] LABS: BUN/CREATININE RATIO 9 (6-25)
[2022-12-06 07:02] LABS: POTASSIUM 2.8 mmol/L (3.5-5.1)
[2022-12-06] MEDS: LEVETIRACETAM 500MG/5ML VIAL 1,000 MG in SODIUM CHLORIDE 0.9% 100 ML IV SCH ×2 (07:54→23:18)
[2022-12-06] MEDS: CLOPIDOGREL BISULFATE 75 MG TAB PO SCH (08:38)
[2022-12-06] MEDS: ASPIRIN 81 MG CHEW TAB PO SCH (08:38)
[2022-12-06] MEDS: ACYCLOVIR SODIUM 1,000 MG in SODIUM CHLORIDE 0.9% 250ML 250 ML IV SCH ×2 (08:43→16:16)
[2022-12-06] MEDS ORDERED: MAGNESIUM SULFATE 2GM/50ML 50 ML IV ONE (09:00)
[2022-12-06] MEDS: HYDROCODONE/APAP 5MG-325MG TAB PO PRN (10:49)
[2022-12-06] MEDS ORDERED: POTASSIUM CHLORIDE 20MEQ/100ML 200 ML IV ONE ×2 (11:00→18:00)
[2022-12-06] MEDS: FLUCONAZOLE 400MG/200ML BAG 200 ML IV SCH (14:23)
[2022-12-06] MEDS ORDERED: SODIUM CHLORIDE 0.9% 250ML 250 ML ONE (15:53)
[2022-12-06] MEDS: ENOXAPARIN SOD INJ 40 MG/0.4 ML SYR SC SCH (16:15)
[2022-12-06] MEDS: ATORVASTATIN 40 MG TAB PO SCH (23:18)
[2022-12-07] MEDS: ACYCLOVIR SODIUM 1,000 MG in SODIUM CHLORIDE 0.9% 250ML 250 ML IV SCH ×2 (00:27→09:33)
[2022-12-07 01:47] VITALS: BP 136/82
[2022-12-07 05:57] VITALS: BP 141/82
[2022-12-07] MEDS: HYDROCORTISONE SOD SUCCINATE 100 MG VIAL IV SCH ×2 (06:13→14:54)
[2022-12-07] MEDS: HYDROCODONE/APAP 5MG-325MG TAB PO PRN (06:16)
[2022-12-07 06:48] LABS: HEMATOCRIT 32.7 % (34.2-44.1); HEMOGLOBIN 9.8 g/dL (12.0-16.0); MEAN CORPUSCULAR HEMOGLOBIN 23.4 pg (28-32); MEAN CORPUSCULAR VOLUME 78.2 fL (81-99); PLATELET COUNT 609 x10e3/uL (140-360); RED BLOOD COUNT 4.18 x10e6/uL (3.6-5.1); RED CELL DISTRIBUTION WIDTH 21.9 % (11.7-14.4)
[2022-12-07 07:11] LABS: ALANINE AMINOTRANSFERASE 61 IU/L (0-55); ALKALINE PHOSPHATASE 96 IU/L (40-150); ANION GAP 13.9 mmol/L (8-16); BLOOD UREA NITROGEN < 5 mg/dL (7-26); CALCIUM 8.1 mg/dL (8.4-10.2); CARBON DIOXIDE 24 mmol/L (22-29); CHLORIDE 109 mmol/L (98-107); CREATININE, SERUM 0.57 mg/dL (0.57-1.11); GLUCOSE 98 mg/dL (74-118); SODIUM 144 mmol/L (136-145)
[2022-12-07 07:26] VITALS: BP 141/82
[2022-12-07 07:29] LABS: BUN/CREATININE RATIO 9 (6-25); POTASSIUM 2.9 mmol/L (3.5-5.1)
[2022-12-07 08:34] VITALS: BP 131/84
[2022-12-07 08:41] LABS: LYMPHOCYTES % (MANUAL) 27 % (19-48); MONOCYTES % (MANUAL) 9 % (3.4-9.0); MYELOCYTES % (MANUAL) 1 % (0-0); NEUTROPHILS % (MANUAL) 63 % (40-74)
[2022-12-07 08:42] LABS: MICROCYTOSIS SLIGHT; PLATELET ESTIMATE SLIGHTLY INCREASED; PLATELET MORPHOLOGY COMMENT NORMAL; RBC MORPHOLOGY COMMENT NORMAL
[2022-12-07] MEDS: ASPIRIN 81 MG CHEW TAB PO SCH (09:24)
[2022-12-07] MEDS: CLOPIDOGREL BISULFATE 75 MG TAB PO SCH (09:24)
[2022-12-07] MEDS: LEVETIRACETAM 500MG/5ML VIAL 1,000 MG in SODIUM CHLORIDE 0.9% 100 ML IV SCH (09:25)
[2022-12-07 09:40] VITALS: BP 131/84
[2022-12-07] MEDS ORDERED: MAGNESIUM SULF 1GRAM/DEXTROSE 100 ML IV ONE (11:00)
[2022-12-07 11:49] VITALS: BP 140/83
[2022-12-07] MEDS ORDERED: Metoprolol Tartrate Inj IV (12:26)
[2022-12-07] MEDS ORDERED: PLAVIX75 MG PO (12:26)
[2022-12-07] MEDS ORDERED: ASPIRIN CHEW81 MG PO (12:26)
[2022-12-07] MEDS ORDERED: TYLENOL325 M2 PO (12:26)
[2022-12-07] MEDS ORDERED: POTASSIUM IV (12:26)
[2022-12-07] MEDS ORDERED: Hydrocortisone Sod Succinate IV (12:26)
[2022-12-07] MEDS ORDERED: ACYCLOVIR SOD1000 MG IV (12:26)
[2022-12-07] MEDS ORDERED: KEPPRA1000 M1 PO (12:26)
[2022-12-07] MEDS ORDERED: AMPICILLIN SODIU1 GM IV (12:26)
[2022-12-07] MEDS ORDERED: CEFTRIAXON1 GM/50 M2 IV (12:26)
[2022-12-07] MEDS ORDERED: LOVENOX40 MG/0.4 SC (12:26)
[2022-12-07] MEDS ORDERED: Atorvastatin PO (12:26)
[2022-12-07] MEDS ORDERED: ONDANSETRON4 MG/2 M1 IV (12:26)
[2022-12-07] MEDS ORDERED: HYDROCODON-ACE1 EA11 PO (12:26)
[2022-12-07] MEDS ORDERED: FLUCONAZOL400 MG/200 IV (12:34)
[2022-12-07] MEDS ORDERED: POTASSIUM CHLORIDE 20MEQ/100ML 100 ML IV SCH (13:00)
== END 2022-12-07 15:41 | DRG 871 ==
LOC: ER 20:44 → ERHOLD 11-29 00:44 → ICU 11-29 05:12 → MED/SURG2 12-06 13:39
PROVIDERS: ADMIT Internal Medicine; ATTEND Internal Medicine
PROC: 009U3ZX Drainage of Spinal Canal, Percutaneous Approach, Diagnostic (ICD-10-PCS; principal; 2022-11-29)
PROC: 02HV33Z Insertion of Infusion Device into Superior Vena Cava, Percutaneous Approach (ICD-10-PCS; 2022-11-29)
PROC: 3E04329 Introduction of Other Anti-infective into Central Vein, Percutaneous Approach (ICD-10-PCS; 2022-11-29)
DX: A41.9 Sepsis, unspecified organism (principal); G93.41 Metabolic encephalopathy; I63.9 Cerebral infarction, unspecified; K63.1 Perforation of intestine (nontraumatic); R65.21 Severe sepsis with septic shock; K65.1 Peritoneal abscess; D84.9 Immunodeficiency, unspecified; E87.20 Acidosis, unspecified; A86 Unspecified viral encephalitis; G81.94 Hemiplegia, unspecified affecting left nondominant side; K57.20 Diverticulitis of large intestine with perforation and abscess without bleeding; E86.0 Dehydration; M08.00 Unspecified juvenile rheumatoid arthritis of unspecified site; M19.91 Primary osteoarthritis, unspecified site; Z86.16 Personal history of COVID-19; Z20.822 Contact with and (suspected) exposure to COVID-19; E87.6 Hypokalemia; E83.42 Hypomagnesemia; Z96.653 Presence of artificial knee joint, bilateral; E66.09 Other obesity due to excess calories; Z68.33 Body mass index [BMI] 33.0-33.9, adult; D64.9 Anemia, unspecified; E83.51 Hypocalcemia; E88.09 Other disorders of plasma-protein metabolism, not elsewhere classified; D75.838 Other thrombocytosis; E16.2 Hypoglycemia, unspecified; R56.9 Unspecified convulsions; K80.20 Calculus of gallbladder without cholecystitis without obstruction; R45.1 Restlessness and agitation
CPT/HCPCS: 36415; 36569; 36600; 51700; 62328; 70450; 70496; 70498; 70551; 71045; 74018; 74177; 74470; 80053; 81001; 82140; 82533; 82550; 82607; 82805; 82945; 82948; 83605; 83690; 83735; 83916; 84100; 84157; 84207; 84425; 84484; 84702; 85007; 85025; 85027; 85610; 85730; 86592; 86789; 87040; 87070; 87086; 87205; 87529; 87798; 89051; 93005; 93306; 94799; 95819; 99252; 99285; J0610; J0696; J1450; J1650; J1720; J1885; J2060; J2270; J2405; J2543; J2765; J3370; J3411; J3475; J3480; J3486; J7030; J7040; J7050; J7121; Q9967

== ENCOUNTER → 2024-06-12 | Day surgery (SDC) | payer OTHER ==
[~2024-06-12] MED LIST changes: +ACYCLOVIR SOD1000 MG IV; +AMPICILLIN SODIU1 GM IV; +ASPIRIN CHEW81 MG PO; +Atorvastatin PO; +BELBUCA150 MCG; +CEFTRIAXON1 GM/50 M2 IV; +CYCLOBENZAPRINE10 MG PO; +FLUCONAZOL400 MG/200 IV; +HYDROCODON-ACE1 EAC9 PO; +Hydrocortisone Sod Succinate IV; +KEPPRA1000 M1 PO; +LIDOCAINE HCL 2% LOCAL INJ 5 ML SDV VIAL INJ ONE; +LOVENOX40 MG/0.4 SC; +METOCLOPRAMIDE HCL 10 MG/2ML VIAL ONE; +METOPROLOL; +Metoprolol Tartrate Inj IV; +ONDANSETRON4 MG/2 M1 IV; +PLAVIX75 MG PO; +POTASSIUM IV; +PREDNISONE1 MG; +PROPOFOL IV EMULSION 10 MG/ML 20 ML VIAL ONE; +ROBAXIN PO; +SULFASALAZINE500 MG PO; +TYLENOL325 M2 PO
[2024-06-12] MEDS: LACTATED RINGER'S 1,000 ML ONE (06:25)
[2024-06-12 07:30] VITALS: TEMP 97.6
[2024-06-12 08:00] VITALS: BP 102/58; PULSE 62; RESP 16; O2SAT 94
[2024-06-19 07:20] LABS: ENDOMYSIAL ANTIBODIES, IGA Negative (Negative)
[2024-06-19 08:38] LABS: IMMUNOGLOBULIN A 218 mg/dL (87-352); TISSUE TRANSGLUTAMINASE IGA AB <2 U/mL (0-3)
== END | disposition home or self-care (01) ==
LOC: OR 05:55
PROVIDERS: ATTEND Internal Medicine Gastroenterology
DX: D50.9 Iron deficiency anemia, unspecified (principal); K29.70 Gastritis, unspecified, without bleeding; K20.90 Esophagitis, unspecified without bleeding; K25.9 Gastric ulcer, unspecified as acute or chronic, without hemorrhage or perforation; K31.89 Other diseases of stomach and duodenum; K31.84 Gastroparesis; K59.09 Other constipation; M06.9 Rheumatoid arthritis, unspecified; R00.0 Tachycardia, unspecified; F41.9 Anxiety disorder, unspecified; Z79.1 Long term (current) use of non-steroidal anti-inflammatories (NSAID); Z79.899 Other long term (current) drug therapy; Z86.16 Personal history of COVID-19
CPT/HCPCS: 43239; 81025; 82784; 83516; 86256; 93005; J2001; J2470; J2704; J2765; J7121

== ENCOUNTER → 2024-08-31 | Day surgery (SDC) | payer OTHER ==
[~2024-08-31] MED LIST changes: -LIDOCAINE HCL 2% LOCAL INJ 5 ML SDV VIAL INJ ONE; -METOCLOPRAMIDE HCL 10 MG/2ML VIAL ONE; +METOCLOPRAMIDE10 MG PO; -PROPOFOL IV EMULSION 10 MG/ML 20 ML VIAL ONE
[2024-08-31] MEDS: LACTATED RINGER'S 1,000 ML ONE (11:08)
[2024-08-31 12:35] VITALS: TEMP 97.5
[2024-08-31 12:50] VITALS: BP 105/81; PULSE 74; RESP 18; O2SAT 100
== END | disposition home or self-care (01) ==
LOC: OR 10:23
PROVIDERS: ATTEND Internal Medicine Gastroenterology
DX: K25.9 Gastric ulcer, unspecified as acute or chronic, without hemorrhage or perforation (principal); K29.70 Gastritis, unspecified, without bleeding; K31.89 Other diseases of stomach and duodenum; K57.90 Diverticulosis of intestine, part unspecified, without perforation or abscess without bleeding; I10 Essential (primary) hypertension; D64.9 Anemia, unspecified; I69.334 Monoplegia of upper limb following cerebral infarction affecting left non-dominant side; M06.9 Rheumatoid arthritis, unspecified; Z79.1 Long term (current) use of non-steroidal anti-inflammatories (NSAID); Z79.899 Other long term (current) drug therapy
CPT/HCPCS: 43239; 81025; J2470; J7121